=== PATIENT | male | born 1965 | race Caucasian/White ===

== ENCOUNTER 2025-03-11 16:29 | Emergency (ER) | payer MEDICAID, SELFPAY ==
[2025-03-11 16:31] VITALS: BP 155/99; PULSE 85; RESP 17; TEMP 36.4; O2SAT 97; BMI 26.2
[2025-03-11 16:33] VITALS: PULSE 84; RESP 24; O2SAT 98
--- NOTE | 2025-03-11 17:23 | XR_ITS ---
EXAMINATION: PA lateral chest 2 views TECHNIQUE: Upright PA lateral chest 2 views Date and time: March 11, 2025, 1736 hours INDICATIONS: Chest pain shortness of breath today. FINDINGS: Pneumonia in the anterior segment right upper lobe Mild prominence left ventricle Mild osteopenia IMPRESSION: Pneumonia in the anterior segment right upper lobe
--- NOTE | 2025-03-11 17:23 | EKG_ITS ---
[facility] Test Date: 2025-03-11 Pat Name: KAUSHAL FAIRCHILD Department: Room: - Gender: Male [employer]: : 1965 Requested By: Mac Balbuena Order Number: [id number] Reading MD: Mac Balbuena Measurements Intervals [place] Rate: 72 P: 7 NM: 128 QRS: 11 QRSD: 94 T: 35 QT: 405 QTc: 444 Interpretive Statements SINUS RHYTHM Compared to ECG 03/27/2024 08:52:58 Sinus tachycardia no longer present Incomplete right bundle-branch block no longer present /store/[id number].pdf
--- NOTE | 2025-03-11 17:24 | EDRME_ITS ---
Rapid Medical Screening Exam [facility] Arrival date/time: 03/11/25 16:29 59-year-old male with a history of hypertension, valley fever presents to the emergency room with a chief complaint of shortness of breath, tingling in his bilateral arms, chest pain x 2 weeks. Patient states he was diagnosed with valley fever but has not started any medication for it. I have greeted and performed a focused initial assessment of this patient. A comprehensive ED assessment and evaluation of the patient, analysis of all test results, and completion of the medical decision making process will be conducted by additional ED providers. Chief Complaint: Anxiety Vital signs: Vital Signs Temperature 97.5 F 03/11/25 16:31 Pulse Rate 85 03/11/25 16:31 Respiratory Rate 17 03/11/25 16:31 Blood Pressure 155/99 H 03/11/25 16:31 Pulse Oximetry (%) 97 03/11/25 16:31 Oxygen Delivery Method Room Air 03/11/25 16:31 Vital signs reviewed by provider: Yes
[2025-03-11 18:19] LABS: Basophils # (Auto) 0.1 Thou/mm3 (0.0-0.2); Basophils % (Auto) 1 % (0-2.5); Eosinophils # (Auto) 0.3 Thou/mm3 (0.0-0.5); Eosinophils % (Auto) 4 % (0-10); Hematocrit 44.4 % (41.0-53.0); Hemoglobin 15.1 g/dL (13.5-16.0); Immature Granulocytes Auto 0.02 Thou/mm3 (0.00-0.00); Lymphocytes # (Auto) 1.4 Thou/mm3 (1.0-4.8); Lymphocytes % (Auto) 18 % (10-50); Mean Corpuscular HGB Conc 34.0 g/dl (31.0-37.0); Mean Corpuscular Hemoglobin 29.8 pg (25.0-35.0); Mean Corpuscular Volume 88 fL (80-100); Monocytes # (Auto) 0.6 Thou/mm3 (0.0-0.8); Monocytes % (Auto) 8 % (0-12); Neutrophils # (Auto) 5.5 Thou/mm3 (1.8-7.7); Neutrophils % (Auto) 69 % (37-80); Nucleated Red Blood Cell # 0.00 Thou/mm3 (0.00-0.00); Nucleated Red Blood Cell % 0 /100 WBC (0); Platelet Count 318 Thou/mm3 (140-440); RDW Standard Deviation 43.0 fL (35.1-43.9); Red Blood Count 5.07 Miln/mm3 (4.50-5.90); White Blood Count 7.9 Thou/mm3 (3.8-10.6)
[2025-03-11 18:35] LABS: B-Type Natriuretic Peptide < 20 pg/mL (0-100)
[2025-03-11 18:37] LABS: Alanine Aminotransferase 14 U/L (10-49); Albumin, Serum 4.4 gm/dL (3.5-5.0); Albumin/Globulin Ratio 1.3 (1.2-2.2); Alkaline Phosphatase 113 U/L (46-116); Anion Gap 11 (7-16); Aspartate Amino Transferase 23 U/L (0-34); BUN/Creatinine Ratio 11 Ratio (12-20); Bilirubin,Total 0.6 mg/dL (0.3-1.2); Blood Urea Nitrogen 16 mg/dL (9-23); Calcium 9.1 mg/dL (8.3-10.6); Calcium (Corrected) 9.1 mg/dL (8.5-10.1); Carbon Dioxide 25.1 mMol/L (20.0-31.0); Chloride 105 mMol/L (98-107); Creatinine (Component) 1.5 mg/dL (0.6-1.3); Estimated Creatinine Clearance 47.3 mL/min (>60); Globulin 3.3 gm/dL (2.3-3.5); Glucose 112 mg/dL (74-106); Magnesium 2.2 mg/dL (1.6-2.6); Osmolality,Calculated 283 (275-295); Potassium 3.9 mMol/L (3.4-5.1); Sodium 141 mMol/L (136-145); Total Protein 7.7 gm/dL (5.7-8.2); Troponin I < 0.020 ng/mL (0.0-0.045); eGFR 54 See Note
[2025-03-11 19:15] LABS: INR 1.0 (0.9-1.3); Partial Thromboplastin Time 32.2 Seconds (22.0-36.0); Prothrombin Time 10.4 Seconds (9.0-12.2)
--- NOTE | 2025-03-11 20:59 | PC.NURSE ---
NO ANSWER FOR CALL BACK TO MAIN ED
--- NOTE | 2025-03-11 21:05 | PC.NURSE ---
CALLED PATIENT IN LOBBY AND OUTSIDE, NO ANSWER RECEIVED.
--- NOTE | 2025-03-11 21:18 | PC.NURSE ---
CALLED PATIENT IN THE LOBBY AND OUTSIDE, NO ANSWER RECEIVED.
== END 2025-03-11 21:19 | disposition left against medical advice (07) ==
PROVIDERS: Nurse Practitioner Family; Emergency Provider Emergency Medicine; PCP Family Medicine
DX: F41.9 Anxiety disorder, unspecified (principal)
CPT/HCPCS: 36415; 71046; 80053; 80307; 81001; 83735; 83880; 84484; 85025; 85610; 85730; 93005; 99284